=== PATIENT | female | born 1945 | race Two or more races ===

== ENCOUNTER → 2023-10-30 08:10 | Outpatient (REF) | payer BC, SELFPAY | LOC: RAD 08:10 | PROVIDERS: ATTENDING PHYSICIAN Obstetrics & Gynecology Gynecologic Oncology | DX: R19.04 Left lower quadrant abdominal swelling, mass and lump (principal); R97.1 Elevated cancer antigen 125 [CA 125] | CPT/HCPCS: 71260; 74177; Q9967 ==

== ENCOUNTER 2023-12-01 06:11 | Day surgery (SDC) | payer BC, SELFPAY ==
[2023-11-30 10:56] LABS: Blood Urea Nitrogen 23 mg/dl (7-17); Calcium 10.6 mg/dl (8.4-10.2); Carbon Dioxide 28 mmol/L (22-30); Chloride 104 mmol/L (98-107); Glucose 95 mg/dl (70-99); Potassium 4.2 mmol/L (3.5-5.1); Sodium 141 mmol/L (135-145); eGFR > 60.00
[2023-11-30 13:12] LABS: Hematocrit 42.1 % (37.0-47.0); Hemoglobin 14.3 g/dL (12.0-16.0); Mean Corpuscular Hgb 31.8 pg (27.0-31.0); Mean Corpuscular Volume 93.8 fL (81.0-99.0); Platelet Count 205 10^3/uL (130-400); Red Blood Cell Count 4.49 10^6/uL (4.20-5.40); Red Cell Dist. Width 12.8 % (11.5-14.5); White Blood Cell Count 5.7 10^3/uL (4.8-10.8)
[2023-11-30 14:07] VITALS: BMI 31.0
[2023-12-01] VITALS (15 sets, daily range): BP systolic 121–142; BP diastolic 44–68; BMI 31.0
[2023-12-01] MEDS: HEPARIN 5000 UNITS SC (07:13)
[2023-12-01] MEDS: CELEBREX 200 MG PO (07:14)
[2023-12-01] MEDS: NEURONTIN 300 MG PO (07:14)
[2023-12-01] MEDS: NORMOSOL-R 1000 IV (07:14)
[2023-12-01] MEDS: TYLENOL 1000 MG PO (07:14)
--- NOTE | 2023-12-01 10:26 | OR.RPT ---
Operative Report
Operative Report
Date of surgery: December 01, 2023
preoperative diagnosis: Left complex ovarian mass, elevated CA125, status post prior total hysterectomy
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
Surgeon:Jeremy Saldaña
Assist: Ramos Patino PA-C, Dillan TARIQ
Procedure: Robotic assisted exploration of the abdomen, laparoscopic bilateral salpingo-oophorectomy, extensive pelvic adhesiolysis and enterolysis, pelvic and right subdiaphragmatic washings, infracolic omentectomy, bilateral pelvic and low
periaortic lymph node dissection, multiple peritoneal biopsies, appendectomy, optimal tumor cytoreduction. TAP block (76310-62, 03460-75, 10344-11)
Anesthesia: General endotracheal intubation
Estimated blood loss 100 cc
Complications: None
Procedure in detail: This patient was brought to the operating room for definitive management of large complex pelvic mass identified on CT scan. The patient has an elevated CA125 suggestive of gynecologic malignancy. She has had a prior history
of total hysterectomy. Upon arrival to the operating room she was placed in supine position, general anesthesia was administered and she was intubated without any difficulty. She was placed in lithotomy position using yellowfin stirrups, she was
prepped on the abdomen perineum and vagina, Park catheter was placed under sterile conditions into the bladder. Arms were wrapped with foam and placed along the side and all joints were properly evaluated to ensure no extra pressure is placed.
Timeout procedure was carried out and she received the appropriate antibiotics. Veress needle was introduced just below the left subcostal margin, insufflation with CO2 gas was completed up to pressure of 15 mmHg. 8 mm robotic X Xi port was
introduced 25 cm cephalad to symphysis pubis into mid epigastric region. We explored the abdomen and noted right and left diaphragms liver stomach spleen gallbladder to be within normal limits. All peritoneal surfaces were normal without implants.
8 mm ports were placed in right and left upper quadrants as well as right and left lateral abdomen. We went ahead and performed a tap block injecting a mixture of ropivacaine 0.5% diluted with 30 cc sterile saline injected just above the
peritoneum and below the muscle 2 fingerbreadths below right and left costal margins in the right and left upper quadrants. Using laparoscopic scissors adhesions of the omentum to the midline lower abdomen was taken down sharply. Once this was
completed an 8 cm incision was made in the lower abdomen and taken down to the level of the fascia and peritoneum was opened and a Neal retractor was placed with a GelPort. Robotic system was docked.
Using sharp dissection adhesions of the large pelvic mass was taken down to the mesentery of the sigmoid colon. Washings were collected from pelvis as well as right subdiaphragmatic space and submitted for cytology. We were able to open the left
retroperitoneum. The course of infundibulopelvic ligament was identified course of ureter was identified. IP ligaments were sealed with vessel sealer and divided. The mass was elevated out of the pelvis and the remainder of the adhesions to the
left pelvic sidewall as well as apex of the vagina were sharply taken down until the mass was completely mobilized the mass was then extracted through the incision and submitted to pathology for evaluation, this returned back as papillary serous low
malignant potential tumor of the ovary. On the right side there was normal-appearing ovary with a cystic lesion of either tube or ovary. Retroperitoneum was opened IP ligament was isolated IP ligament was sealed and divided we went ahead and
detached the ovary from the right pelvic sidewall and took down the adhesions from the right aspect of the sigmoid colon and then also extracted the specimen and then this was sent as right tube and ovary to pathology. Peritoneal biopsies were
performed from right and left pelvis as well as vaginal cuff and anterior cul-de-sac and these were submitted to pathology. Infracolic omentectomy was performed from hepatic to splenic flexure of the colon sealing a series of omental vessels and
the specimen was extracted through the incision. Appendix was examined, mesoappendix was sealed and divided, appendectomy was performed using a Endo LISA 45-2.5 mm stapler. We then performed bilateral pelvic lymphadenectomy starting from mid common
iliac level down to the level of deep circumflex iliac artery and vein removing the entire lymph nodes between genitofemoral nerves up to the level of the ureter medially, posterior boundaries included some of the hypogastric nodes as well as
obturator nodes anterior to the obturator nerve. Good hemostasis was present throughout. Given absence of high periaortic lymph nodes I did not perform any lymphadenectomy in that region. All operative sites were examined and there was no
evidence of bleeding. Instruments were removed pneumoperitoneum was released the robotic system was undocked. The lower abdominal incision was closed at the level of the fascia with a STRATAFIX suture in a running fashion and returning back to the
center and a second layer. Subcutaneous tissue was irrigated copiously. All incisions were closed with 4-0 Monocryl in a subcuticular fashion. We injected a total of 30 cc bupivacaine and all of the incisions.
Patient was awakened extubated and returned back to recovery room stable awake and extubated condition. Counts of laps instruments and needle was correct x 2. I was present and scrubbed for entire procedure as dictated above.
Disposition: To PACU, alert and awake, extubated
[2023-12-01] MEDS: MORPHINE SULFATE 1 MG IV ×2 (11:17→11:31)
--- NOTE | 2023-12-01 11:56 | SUR.PHASEI ---
IS started with patient - who is familiar with this from previous hospitalization. pulling volume [id number].
[2023-12-01] MEDS: TORADOL 15 MG IV (15:52)
--- NOTE | 2023-12-01 19:10 | W.PN.UPDATE ---
Update Note
Progress Note Update
Late Entry:
Upon arrival to the OR earlier today, induction of anesthesia and positioning in lithotomy I noted brusing and ecchymosis on left buttocks. On exam she also seem to have a fluctuant mass 4-5 cm left labial fullness. I suspect this is a hematoma. I
contacted her daughter and sent a picture of area to her, she did not know of any prior event or fall that could explain this process. I did not feel this requires any intervention for now. This note documents that this finding was present at the
time patient presented to the hospital and it is not a complication of her hospital stay or procedures.
Jeremy Saldaña MD
== END 2023-12-01 16:10 | disposition home or self-care (01) ==
LOC: SDS 06:11
PROVIDERS: ATTENDING PHYSICIAN Obstetrics & Gynecology Gynecologic Oncology
DX: N83.202 Unspecified ovarian cyst, left side (principal); N83.8 Other noninflammatory disorders of ovary, fallopian tube and broad ligament; N73.6 Female pelvic peritoneal adhesions (postinfective); R19.04 Left lower quadrant abdominal swelling, mass and lump; R97.1 Elevated cancer antigen 125 [CA 125]; Z90.710 Acquired absence of both cervix and uterus
CPT/HCPCS: 38572; 58661; 44970; 88304; 88305; 88307; 88332; 36415; 80048; 85027; 88112; 88331; 88341; 88342; 93005